=== PATIENT | male | born 1960 | race Two or more races ===

== ENCOUNTER 2021-08-28 18:30 | Emergency (ER) | payer OTHER ==
[~2021-08-28] VITALS: Ht 177.8 cm; Wt 90.9 kg
[2021-08-28 18:30] VITALS: BP 110/62
[~2021-08-28 18:30] MED LIST: AMOX500T PO; FLUT16SP2 NS; HYDR-2145 PO; IBUP600T16 PO; LISI20TA18 PO; LORA10TA68 PO
--- NOTE | 2021-08-28 18:55 | PHYS DOC ---
General Adult EDM: Chief Complaint: CPR/FULL ARREST HPI: HPI: Pt. prisoner from [facility]- in General Population- Code call for transport at 1744, arrival 1751 paramedics, lst epi at 1806, transport to ED- arrival 1827. Pt. reportedly became non-responsive after dinner tonight per cell mate. Upon check by guards pt. reported found non-responsive and CPR started. Paramedics arrived and pt found not to breathing or have pulse. Pt started on ACLS protocol. Paramedics placed a esophageal air way. IO in Rt. Tibia. Pt. did have reportedly 5 rounds of Epi during market research interviewer transport and resuscitation attempts.. Patient's cardiopulmonary compression supplied by automatic compressor. After arrival IV place in Lt anti cub. by ED staff. Pt Gluc. 154. Pulse checks pt. remained in Asystole. No spontaneous respirations during code while at [facility]. Eyes were fixed and dilated upon arrival. It was noted patient had venous settling on posterior back. No obvious skin injuries on back .. Patient is a 61 year old male who presents with hx of cardio pulmonary arrest. Pt. reportedly had PEA during market research interviewer code. Pt. airway reported open and no foreign body noted with market research interviewer attempt ET/ then esophageal airway. Code continue after arrival to ED. Pt. received addional Epi x 2 after arrive to Trauma room. Code called at 1835 See Code sheet for details. Review of Systems: Review of Systems: Reportedly cardiopulmonary arrest at the intermediate Family History: Family History: Not currently available Current Medications: Current Meds: See nursing for home meds Allergies: Allergies: Allergies Coded Allergies Type Severity Reaction Last Updated Verified No Known Drug Allergies 07/10/14 No Physical Exam: PE: Constitutional: , no acute distress, in appearance. [] HENT: Normocephalic, atraumatic, bilateral external ears normal, oropharynx moist, no oral exudates, nose normal. Oral/esophageal airway Eyes: Fixed and dilated mid Neck: No JVD. Trachea appear to be midline Cardiovascular: No pulse. No electrical activity on monitor. Did have pulses with automatic compressor Lungs & Thorax: Bilateral breath sounds at apex more prominent on right Abdomen: Bowel sounds none, soft, distended tympanic abdomen Skin: Cyanotic and cold. Had venous settling on shoulder and back Back: Venous settling. No obvious injury. No step-off abnormalities of spine Extremities: Cyanotic, Neurologic: Nonresponsive Current Patient Data: Labs: Laboratory Tests Test 08/28/21 18:32 Glucose (Fingerstick) 154 mg/dL (70-99) H EKG: EKG: [] Radiology/Procedures: Radiology/Procedures: [] Heart Score: C/O Chest Pain: N/A Risk Factors: Risk Factors: DM, Current or recent (<one month) smoker, HTN, HLP, family history of CAD, obesity. Risk Scores: Score 0 - 3: 2.5% MACE over next 6 weeks - Discharge Home Score 4 - 6: 20.3% MACE over next 6 weeks - Admit for Clinical Observation Score 7 - 10: 72.7% MACE over next 6 weeks - Early Invasive Strategies Course & Med Decision Making: Course & Med Decision Making Pertinent Labs and Imaging studies reviewed. (See chart for details) See Code Sheet for Details. Laverne took position of body for further evaluation , investigation, and possible autopsy.. Impression: 1.Cardiopulmonary Arrest 2. 184 [] Ashley Disclaimer: Ashley Disclaimer: This electronic medical record was generated, in whole or in part, using a voice recognition dictation system. Departure Departure: Referrals: MARINO MERAZ MD (PCP) Ashley Disclaimer This chart was dictated in whole or in part using Voice Recognition software in a busy, high-work load, and often noisy Emergency Department environment. It may contain unintended and wholly unrecognized errors or omissions. CULLEN MCCOY MD Aug 28, 2021 18:55
[2021-08-28] MEDS ORDERED: IV NORMAL SALINE 1,000ML 1,000 ML IV SCH (19:00)
[2021-08-28 19:11] LABS: BASO # 0.1 x10^3/uL (0.0-0.2); BASO % 1 % (0-3); EOS # 0.3 x10^3/uL (0.0-0.7); EOS % 4 % (0-3); HEMATOCRIT 47.6 % (39.0-53.0); HEMOGLOBIN 15.3 g/dL (13.0-17.5); LYMPH # 5.1 x10^3/uL (1.0-4.8); LYMPH % 79 % (24-48); MEAN CORPUSCULAR HEMOGLOBIN 30 pg (25-35); MEAN CORPUSCULAR HGB CONC 32 g/dL (31-37); MEAN CORPUSCULAR VOLUME 94 fL (79-100); MONO # 0.2 x10^3/uL (0.0-1.1); MONO % 3 % (0-9); NEUT # 0.9 x10^3uL (1.8-7.7); NEUT % 14 % (31-73); PLATELET COUNT 132 x10^3/uL (140-400); RED BLOOD COUNT 5.07 x10^6/uL (4.30-5.70); RED CELL DISTRIBUTION WIDTH 14.5 % (11.5-14.5); WHITE BLOOD COUNT 6.5 x10^3/uL (4.0-11.0)
[2021-08-28 19:28] LABS: CALCIUM 8.7 mg/dL (8.5-10.1); CREATININE 1.6 mg/dL (0.7-1.3); GFR 43.9; POTASSIUM 3.1 mmol/L (3.5-5.1)
[2021-08-28 19:38] LABS: ALBUMIN 2.8 g/dL (3.4-5.0); DIRECT BILIRUBIN 0.1 mg/dL (0.0-0.2); MAGNESIUM 2.8 mg/dL (1.8-2.4); TOTAL BILIRUBIN 0.3 mg/dL (0.2-1.0); TOTAL PROTEIN 6.3 g/dL (6.4-8.2)
== END 2021-08-28 21:15 ==
LOC: EEVIPCON 18:30 → ER 18:30
DX: I46.9 Cardiac arrest, cause unspecified (principal); Z20.822 Contact with and (suspected) exposure to COVID-19
CPT/HCPCS: 80048; 80076; 82550; 82947; 83690; 83735; 83880; 84443; 84484; 85025; 85379; 85610; 85730; 87426; 92950; 93005; 99285; C9803; U0003